=== PATIENT | female | born 1950 | race Caucasian/White ===

== ENCOUNTER 2016-04-21 10:43 | Outpatient (CLI) | payer OTHER ==
--- NOTE | 2016-04-21 12:33 | DIAGNOSTIC IMAGING REPORT ---
PROCEDURE: US BILATERAL CAROTID DOPPLER INDICATION: CAROTID BRUIT TECHNIQUE: Color Doppler duplex imaging of the carotid and vertebral vessels. COMPARISON: None. FINDINGS: Minimal plaque bilaterally Right carotid system: No significant stenosis visualized. The waveforms are normal. Left carotid system: No significant stenosis visualized. The waveforms are normal. Vertebral System: Antegrade vertebral artery flow bilaterally. Right common carotid artery peak systolic velocity 78.9 cm/second. Right internal carotid artery peak systolic velocity 89.3 cm/second. Right external carotid artery peak systolic velocity 69 cm/second. Right wetdqbpi-cq-nkcepw carotid artery ratio 1.7 Right vertebral artery peak systolic velocity 36.7 cm/second. Left common carotid artery peak systolic velocity 90.1 cm/second. Left internal carotid artery peak systolic velocity 61.1 cm/second. Left external carotid artery peak systolic velocity 79.5 cm/second. Left rwokkhrq-pz-qolmdy carotid artery ratio 1.3 Left vertebral artery peak systolic velocity 37.6 cm/second. IMPRESSION: 1. No hemodynamically significant stenosis in either carotid system. 2. Antegrade vertebral artery flow bilaterally. Velocity criteria are extrapolated from diameter data as defined by the Society of Radiologists in Ultrasound Consensus Conference, Radiology 2003; 229; 340-346.
--- NOTE | 2016-04-21 12:33 | DIAGNOSTIC IMAGING REPORT ---
PROCEDURE: US BILATERAL CAROTID DOPPLER INDICATION: CAROTID BRUIT TECHNIQUE: Color Doppler duplex imaging of the carotid and vertebral vessels. COMPARISON: None. FINDINGS: Minimal plaque bilaterally Right carotid system: No significant stenosis visualized. The waveforms are normal. Left carotid system: No significant stenosis visualized. The waveforms are normal. Vertebral System: Antegrade vertebral artery flow bilaterally. Right common carotid artery peak systolic velocity 78.9 cm/second. Right internal carotid artery peak systolic velocity 89.3 cm/second. Right external carotid artery peak systolic velocity 69 cm/second. Right brwxyhvl-cx-ieufyn carotid artery ratio 1.7 Right vertebral artery peak systolic velocity 36.7 cm/second. Left common carotid artery peak systolic velocity 90.1 cm/second. Left internal carotid artery peak systolic velocity 61.1 cm/second. Left external carotid artery peak systolic velocity 79.5 cm/second. Left risggspi-hr-hphfuk carotid artery ratio 1.3 Left vertebral artery peak systolic velocity 37.6 cm/second. IMPRESSION: 1. No hemodynamically significant stenosis in either carotid system. 2. Antegrade vertebral artery flow bilaterally. Velocity criteria are extrapolated from diameter data as defined by the Society of Radiologists in Ultrasound Consensus Conference, Radiology 2003; 229; 340-346.
== END 2016-04-21 23:00 ==
LOC: US SRH 10:43
DX: R09.89 Other specified symptoms and signs involving the circulatory and respiratory systems (principal)

== ENCOUNTER 2016-09-01 13:53 | Outpatient (CLI) | payer OTHER ==
--- NOTE | 2016-09-01 14:23 | DIAGNOSTIC IMAGING REPORT ---
PROCEDURE: XR CHEST 2 VIEW INDICATION: CHEST PAIN TECHNIQUE: PA and lateral views. COMPARISON: None. FINDINGS: Lungs are clear. Heart and mediastinum are normal. Thorax is normal. IMPRESSION: 1. Negative chest.
== END 2016-09-01 23:00 | disposition home or self-care (01) ==
LOC: XR SRH 13:53
DX: R07.9 Chest pain, unspecified (principal)